=== PATIENT | female | born 1995 | race African-American/Black ===

== ENCOUNTER 2017-05-28 11:23 | Emergency (ER) | payer MEDICAID, OTHER ==
[~2017-05-28 11:23] MED LIST: AUGM875T PO; KCL20 PO; OXYC1SOL5 PO
[2017-05-28 11:44] VITALS: BP 130/78; PULSE 87; RESP 16; TEMP 99; O2SAT 100
[2017-05-28] MEDS ORDERED: CLIN300C5 PO (12:40)
[2017-05-28] MEDS ORDERED: PRED20 PO (12:40)
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
== END 2017-05-28 13:40 | disposition home or self-care (01) ==
LOC: PHEFT 11:23
DX: S00.86XA Insect bite (nonvenomous) of other part of head, initial encounter (principal); S60.561A Insect bite (nonvenomous) of right hand, initial encounter; W57.XXXA Bitten or stung by nonvenomous insect and other nonvenomous arthropods, initial encounter; Z72.0 Tobacco use
CPT/HCPCS: 99284

== ENCOUNTER 2018-03-11 09:04 | Observation (INO) ==
--- NOTE | 2018-03-11 09:38 | ED ---
HPI General Chief complaint: Dental/Oral Stated complaint: Dental abscess since Time Seen by Provider: 03/11/18 09:27 Source: patient Mode of arrival: ambulatory Limitations: no limitations History of Present Illness HPI Narrative: 22 y/o female presents with left facial pain and swelling. She went to a dentist on Monday and was prescribed amoxicillin but when her symptoms worsen yesterday she was switched to Augmentin. She states despite that her pain continues and her face is swelling more. She denies other concurrent complaints at this time. She states the dentist told her she had the beginnings of an abscess she will need a root canal. Complaint: Reports tooth pain Onset (ago): day(s) Severity: severe Relieving factors: NSAIDs Treatment prior to arrival: Reports oral analgesic Related Data Home Medications Medication Instructions Recorded Confirmed amoxicillin-pot clavulanate 1 tab PO BID 03/11/18 03/11/18 [Augmentin] ibuprofen 200 mg PO TID-QID PRN 03/11/18 03/11/18 Allergies Allergy/AdvReac Type Severity Reaction Status Date / Time No Known Allergies Allergy Verified 03/11/18 09:05 Review of Systems ROS: all other systems reviewed are negative COUNT INCLUDES THE [facility] Medical History Medical History History of abdominal hernia (Acute) Surgical History Surgical History H/O elbow surgery (Acute) H/O: (Acute) Social History Social History Substance History: No History of Abuse Smoking Status: Current every day smoker Tobacco Type: Cigarettes How Often Do You Have a Drink Containing Alcohol: 2 to 4 times a month Recent Travel in [facility] within the Last 8 Weeks: No Recent Out of Country Travel within the Last 8 Weeks: No Immunization History Tetanus Immunization: Unsure Exam Narrative Exam Narrative: GENERAL: 22 y/o female who appears uncomfortable SKIN: Focused skin assessment warm/dry. HEAD: Atraumatic. Normocephalic. Significant swelling noted to left lower face EYES: Pupils equal and round. No scleral icterus. No injection or drainage. ENT: No nasal bleeding or discharge. Mucous membranes pink and moist. No large dental carry or gingival irritation on limited exam given facial swelling to left lower face NECK: Trachea midline. No JVD. CARDIOVASCULAR: Regular rate and rhythm. No murmur appreciated. RESPIRATORY: No accessory muscle use. Clear to auscultation. Breath sounds equal bilaterally. GASTROINTESTINAL: Abdomen soft, non-tender, nondistended. MUSCULOSKELETAL: No obvious deformities. No clubbing. No cyanosis. No edema. NEUROLOGICAL: Awake and alert. No obvious cranial nerve deficits. Motor grossly within normal limits. Normal speech. PSYCHIATRIC: Appropriate mood and affect; insight and judgment normal. Course Reevaluation(s) Reevaluation #1: patient updated and agrees to discussion with surgeon Reevaluation #2: agrees to medical admit for antibiotics and steriods Consultations Consultation #1: dr medina states to give zosyn and additionally decadron 6mg iv times 2 Consultation #2: dr maldonado agrees to admit Initial Documented Vital Signs Temperature 99.0 F 03/11/18 09:07 Pulse Rate 109 H 03/11/18 09:07 Respiratory Rate 18 03/11/18 09:07 Blood Pressure 161/85 H 03/11/18 09:07 Pulse Oximetry 98 03/11/18 09:07 Last Documented Vital Signs Temperature 99.0 F 03/11/18 09:07 Pulse Rate 109 H 03/11/18 09:07 Respiratory Rate 18 03/11/18 09:07 Blood Pressure 161/85 H 03/11/18 09:07 Pulse Oximetry 97 03/11/18 09:40 Medical Decision Making MDM Narrative Medical decision making narrative: Will check blood work, CT and reevaluate Medical Screen Exam Complete: Yes Emergency Medical Condition: Yes Differential Diagnosis Differential Diagnosis: Abscess, osteomyelitis, dental caries Lab Data Lab results reviewed: Yes I reviewed the patient's lab results. Result diagrams: 03/11/18 09:39 03/11/18 09:39 POC Results POC Urine Results Negative Lab Results 03/11/18 03/11/18 Range/Units 09:39 09:39 CBC w Diff Auto diff final WBC 7.7 (4.0-11.0) th/mm3 RBC 4.53 (4.00-5.30) mil/mm3 Hgb 13.2 (11.6-15.3) gm/dL Hct 39.8 (35.0-46.0) % MCV 87.7 (80.0-100.0) fL MCH 29.2 (27.0-34.0) pg MCHC 33.3 (32.0-36.0) % RDW 15.0 (11.6-17.2) % Plt Count 250 (150-450) th/mm3 MPV 8.3 (7.0-11.0) fL Neut % (Auto) 80.0 H (16.0-70.0) % Lymph % (Auto) 15.8 (9.0-44.0) % [place] % (Auto) 2.1 (0.0-8.0) % Eos % (Auto) 0.5 (0.0-4.0) % Baso % (Auto) 1.6 (0.0-2.0) % Neut # (Auto) 6.2 (1.8-7.7) th/mm3 Lymph # (Auto) 1.2 (1.0-4.8) th/mm3 [place] # (Auto) 0.2 (0.0-0.9) th/mm3 Eos # (Auto) 0.0 (0.0-0.4) th/mm3 Baso # (Auto) 0.1 (0.0-0.2) th/mm3 WBC Differential . Differential Comment . Sodium 138 (136-145) meq/L Potassium 3.3 L (3.5-5.1) meq/L Chloride 103 (98-107) meq/L Carbon Dioxide 23.3 (21.0-32.0) meq/L Anion Gap 12 (5-15) meq/L BUN 9 (7-18) mg/dL Creatinine 0.59 (0.50-1.00) mg/dL Estimated GFR Greater than 89 (>89) mL/min Random Glucose 71 L (74-106) mg/dL Calcium 9.0 (8.5-10.1) mg/dL Imaging Data Attestation: I personally reviewed and interpreted this imaging study as follows : Radiologist's impression: Face CT 03/11/18 09:32 CONCLUSION: 1. Radiolucency and bone defect surrounding the root of the lower left second bicuspid characteristic of a periodontal abscess. 2. Focal mandibular cortical defect adjacent to the root abscess extending into the subcutaneous tissue causing a small abscess. 3. No other significant abnormality. Discharge Plan Discharge Disposition Patient Disposition: 30 Still Patient Discharge Details Diagnosis: Dental abscess Physicians Team ED Provider: Latonya Davis Primary Care Provider: Primary Care Jennifer Macdonald Rxs /Orders / Referrals /Forms Prescriptions: No Action ibuprofen 200 mg Tablet 200 mg PO TID-QID PRN (Reason: Acute Pain) RF: 0 amoxicillin-pot clavulanate [Augmentin] 875-125 mg Tablet 1 tab PO BID RF: 0 Status ED Status: Admitted Patient
[2018-03-11] MEDS ORDERED: Ketorolac Inj 30 MG/ML (IVP) Vial IV.PUSH ONE (09:39)
[2018-03-11 09:56] LABS: Baso # (Auto) 0.1 th/mm3 (0.0-0.2); Baso % (Auto) 1.6 % (0.0-2.0); Eos % (Auto) 0.5 % (0.0-4.0); Hematocrit 39.8 % (35.0-46.0); Hemoglobin 13.2 gm/dL (11.6-15.3); Lymph # (Auto) 1.2 th/mm3 (1.0-4.8); Lymph % (Auto) 15.8 % (9.0-44.0); Mean Corpuscular HGB Conc 33.3 % (32.0-36.0); Mean Corpuscular Hemoglobin 29.2 pg (27.0-34.0); Mean Corpuscular Volume 87.7 fL (80.0-100.0); Mean Platelet Volume 8.3 fL (7.0-11.0); Mono # (Auto) 0.2 th/mm3 (0.0-0.9); Mono % (Auto) 2.1 % (0.0-8.0); Neut # (Auto) 6.2 th/mm3 (1.8-7.7); Platelet Count 250 th/mm3 (150-450); Red Blood Count 4.53 mil/mm3 (4.00-5.30); White Blood Count 7.7 th/mm3 (4.0-11.0)
[2018-03-11 10:24] LABS: Chloride 103 meq/L (98-107); Potassium 3.3 meq/L (3.5-5.1); Sodium 138 meq/L (136-145)
[2018-03-11 10:27] LABS: Anion Gap 12 meq/L (5-15); Blood Urea Nitrogen 9 mg/dL (7-18); Carbon Dioxide 23.3 meq/L (21.0-32.0); Glucose,Random 71 mg/dL (74-106)
[2018-03-11 10:30] LABS: Glomerular Filtration Rate Greater Than 89 mL/min (>89)
--- NOTE | 2018-03-11 12:08 | CT ---
EXAM DATE: 03/11/2018 11:03 AM EST AGE/SEX: 22 years / Female INDICATIONS: Left sided dental infection with facial pain and swelling. No improvement with oral ant ibiotics. CLINICAL DATA: This is the patient's initial encounter. Patient reports that signs and symptoms have been present for 4 - 6 days and indicates a pain score of 8/10. MEDICAL/SURGICAL HISTORY: . Hernia. section. Elbow surgery. RADIATION DOSE: 30.00 CTDI (mGy) COMPARISON: [facility] [place], CT FACIAL BONES W CONTRAST, 05/30/2015. . TECHNIQUE: Contiguous images in the axial and coronal planes were obtained using helical multirow de tector technique with 75 ml Omnipaque 350 (iohexol) nonionic water-soluble contrast as a single exam dose. Using automated exposure control and adjustment of the mA and/or kV according to patient size , radiation dose was kept as low as reasonably achievable to obtain optimal diagnostic quality images . DICOM format image data is available electronically for review and comparison. FINDINGS: Significant radiolucency is identified surrounding the the root of the left second lower bicuspid, (# 20). A focal cortical defect extends to the lateral mandibular margin. Surrounding the defect is a 10 to 12 mm semicircular hypodensity characteristic of a small abscess. There is significant soft tissu e swelling along the body of the left mandible. Orbits: The orbital and infraorbital osseous structures are intact. The retroconal structures have a normal configuration. No radiopaque foreign bodies are seen. Nasal Bone: The nasal bone and maxillary spine are intact. Zygomatic Arches: Symmetric without evidence of fracture. Sinuses: The maxillary, ethmoid and frontal sinuses are intact. No air-fluid levels seen. Nasal Cavity: The nasal septum is intact and midline. The lacrimal ducts are intact. Soft Tissues: No radiopaque foreign bodies seen. No soft-tissue swelling is seen. Intracranial: No intracranial air seen. Cribriform Plate: Grossly intact. Post Contrast: No abnormal areas of enhancement seen. CONCLUSION: 1. Radiolucency and bone defect surrounding the root of the lower left second bicuspid characteristi c of a periodontal abscess. 2. Focal mandibular cortical defect adjacent to the root abscess extending into the subcutaneous tis merlin causing a small abscess. 3. No other significant abnormality. Electronically signed by: Edin Chi MD 03/11/2018 12:07 PM EST
[2018-03-11] MEDS ORDERED: Piperacil/Tazo 3.375 GM Premix 50 ML IV.SIG ONE (12:41)
[2018-03-11] MEDS ORDERED: Potassium Bicarbonate 25 MEQ Effervescent Tablet PO STA (13:06)
[2018-03-11] MEDS ORDERED: Acetaminophen 325 MG Tablet PO PRN ×2 (13:08→13:09)
[2018-03-11] MEDS ORDERED: Bisacodyl 10 MG Supp RECTAL PRN (13:08)
[2018-03-11] MEDS ORDERED: Naloxone Inj 0.4 MG/ML Vial IV.PUSH PRN (13:09)
[2018-03-11] MEDS ORDERED: Ibuprofen 400 MG Tablet PO PRN (13:09)
[2018-03-11] MEDS ORDERED: Ketorolac Inj 30 MG/ML (IVP) Vial IV.PUSH PRN (13:09)
[2018-03-11 13:34] LABS: Magnesium 1.9 mg/dL (1.5-2.5)
[2018-03-11] MEDS: Ketorolac Inj 30 MG/ML (IVP) Vial IV.PUSH PRN ×2 (14:01→20:08)
--- NOTE | 2018-03-11 14:09 | P.HP ---
History of Present Illness Primary Care Physician: No Primary Care Physician Chief Complaint: Dental abscess History of Present Illness: This is a 22-year-old female with no significant past medical history. She developed painful swelling involving the left cheek and was diagnosed with a dental abscess 4 days ago. She was started on amoxicillin but swelling got worse and was switched to Augmentin yesterday. She denies fever or chills. She presents to the emergency department because the swelling has not subsided. Imaging study shows periodontal abscess involving the left lower second tooth extending into the subcutaneous tissue. No trismus or change in voice. OMFS recommended hospitalization and start IV Zosyn and Decadron. LMP 2 weeks ago. All other systems reviewed negative Review of Systems All other systems reviewed negative except as stated in HPI PMFSH - History History Provided By: Patient, Family Member - Medical History Medical History: Medical History (Last Reviewed 03/11/18 @ 14:05 by Abdiel Medellin MD) History of abdominal hernia - Surgical History Surgical History: Surgical History (Last Reviewed 03/11/18 @ 14:05 by Abdiel Medellin MD) H/O elbow surgery H/O: - Family History Family History: Family History (Last Updated 03/11/18 @ 14:06 by Abdiel Medellin MD) Other Family history of hypertension - Social History I have reviewed the patient's Social History: Yes - Tobacco History Tobacco Use In Past 30 Days: Yes Smoking Status: Current every day smoker Tobacco Type: Cigarettes - Alcohol History How Often Do You Have a Drink Containing Alcohol: 2 to 4 times a month - Substance Use History Substance History: No History of Abuse - Travel History Recent Travel in the [place] Within the Last 8 Weeks: No Recent Travel Out of the Country Within the Last 8 Weeks: No - Immunization History Tetanus Immunization: Unsure Medications and Allergies Active Medications: Active Medications Acetaminophen (Tylenol) 650 mg PO Q4H PRN PRN Reason: Temp > 100.4 Acetaminophen (Tylenol) 650 mg PO Q6HR PRN PRN Reason: PAIN SCALE 1 TO 2 Al Hydroxide/Mg Hydroxide (Milk Of Magnesia Liq) 30 ml PO Q12H PRN PRN Reason: Mild Constipation Bisacodyl (Dulcolax Supp) 10 mg RECTAL DAILY PRN PRN Reason: SEVERE CONSITIPATION Dexamethasone Sodium Phosphate (Decadron Inj) 4 mg IV.PUSH Q8HR ROMERO Stop: 03/12/18 06:01 Piperacillin/Tazobactam/Dextrose (Zosyn 3.375 Gm Premix) 50 mls @ 100 mls/hr IV.SIG Q6H [facility] Potassium Chloride/Sodium Chloride (Ns + Kcl 20 Meq Inj) 1,000 mls @ 70 mls/hr IV.CONT .[id number] [facility] Stop: 03/12/18 04:32 Ibuprofen (Motrin) 400 mg PO Q6HR PRN PRN Reason: PAIN SCALE 1 TO 2 Ketorolac Tromethamine (Toradol Inj) 15 mg IV.PUSH Q6H PRN PRN Reason: PAIN 3-5; IF UABLE TO TAKE PO Stop: 03/16/18 13:08 Ketorolac Tromethamine (Toradol Inj) 30 mg IV.PUSH Q6H PRN PRN Reason: PAIN 6-10;IF UNABLE TO TAKE PO Stop: 03/16/18 13:08 Lactulose (Lactulose Liq) 30 ml PO DAILY PRN PRN Reason: SEVERE CONSITIPATION Naloxone HCl (Narcan Inj) 0.4 mg IV.PUSH UNSCH PRN PRN Reason: SEE LABEL COMMENTS Ondansetron HCl (Zofran Inj) 4 mg IV.PUSH Q6H PRN PRN Reason: NAUSEA OR VOMITING Senna/Docusate Sodium (Kaia-Colace) 1 tab PO BID [facility] Sennosides (Senokot) 17.2 mg PO Q12H PRN PRN Reason: Moderate Constipation Sodium Chloride (Ns Flush) 2 ml IV.FLUSH PRN PRN PRN Reason: FLUSH AFTER USING IV ACCESS Last Admin: 03/11/18 09:45 Dose: 2 ml Allergies Allergy/AdvReac Type Severity Reaction Status Date / Time No Known Allergies Allergy Verified 03/11/18 09:05 Home Medications Medication Instructions Recorded Confirmed Type amoxicillin-pot clavulanate 1 tab PO BID 03/11/18 03/11/18 History [Augmentin] ibuprofen 200 mg PO TID-QID PRN 03/11/18 03/11/18 History Exam Vital signs: Vital Signs 03/11/18 09:07 03/11/18 09:40 03/11/18 13:29 Temperature 99.0 F Pulse Rate 109 H 89 Respiratory Rate 18 17 Blood Pressure 161/85 H 145/72 H Pulse Oximetry 98 97 97 Intake & Output 03/10/18 03/11/18 03/11/18 19:59 06:59 18:59 Intake Total 50 / 50 Balance 50 / 50 Weight 66.3 kg Intake: IV 50 / 50 Zosyn 3.375 GM Premix 50 ML @ 50 / 50 100 mls/hr IV.SIG ONCE ONE Rx#: [id number] Narrative: GENERAL: Well-developed, well-nourished in distress secondary to pain SKIN: Warm and dry. HEAD: Atraumatic. Normocephalic. EYES: Pupils equal and round. No scleral icterus. No injection or drainage. ENT: No nasal bleeding or discharge. Mucous membranes pink and moist. Swelling in the left lower face extending to submandibular area. No dental carry noted NECK: Trachea midline. No JVD. CARDIOVASCULAR: Regular rate and rhythm. RESPIRATORY: No accessory muscle use. Clear to auscultation. Breath sounds equal bilaterally. GASTROINTESTINAL: Abdomen soft, non-tender, nondistended. MUSCULOSKELETAL: Extremities without clubbing, cyanosis, or edema. No obvious deformities. NEUROLOGICAL: Awake and alert. No obvious cranial nerve deficits. Motor grossly within normal limits. Five out of 5 muscle strength in the arms and legs. Normal speech. PSYCHIATRIC: Appropriate mood and affect; insight and judgment normal. Results - Labs CBC & Chem 7: 03/11/18 09:39 03/11/18 09:39 Labs: Laboratory Results - last 24 hr 03/11/18 03/11/18 09:39 09:39 CBC w Diff Auto diff final WBC 7.7 RBC 4.53 Hgb 13.2 Hct 39.8 MCV 87.7 MCH 29.2 MCHC 33.3 RDW 15.0 Plt Count 250 MPV 8.3 Neut % (Auto) 80.0 H Lymph % (Auto) 15.8 [place] % (Auto) 2.1 Eos % (Auto) 0.5 Baso % (Auto) 1.6 Neut # (Auto) 6.2 Lymph # (Auto) 1.2 [place] # (Auto) 0.2 Eos # (Auto) 0.0 Baso # (Auto) 0.1 WBC Differential . Differential Comment . Sodium 138 Potassium 3.3 L Chloride 103 Carbon Dioxide 23.3 Anion Gap 12 BUN 9 Creatinine 0.59 Estimated GFR Greater than 89 Random Glucose 71 L Calcium 9.0 Magnesium 1.9 - Imaging Impressions Face CT 03/11/18 09:32 CONCLUSION: 1. Radiolucency and bone defect surrounding the root of the lower left second bicuspid characteristic of a periodontal abscess. 2. Focal mandibular cortical defect adjacent to the root abscess extending into the subcutaneous tissue causing a small abscess. 3. No other significant abnormality. Caprini VTE Risk Assessment Caprini VTE Risk Assessment: No/Low Risk (score <= 1) Caprini Risk Assessment Model: Point Value = 1 Point Value = 2 Point Value = 3 Point Value = 5 Age 41-60 Minor surgery BMI > 25 kg/m2 Swollen legs Varicose veins or History of unexplained or recurrent spontaneous Oral contraceptives or hormone replacement Sepsis (< 1 month) Serious lung disease, including pneumonia (< 1 month) Abnormal pulmonary function Acute myocardial infarction Congestive heart failure (< 1 month) History of inflammatory bowel disease Medical patient at bed rest Age 61-74 Arthroscopic surgery Major open surgery (> 45 min) Laparoscopic surgery (> 45 min) Malignancy Confined to bed (> 72 hours) Immobilizing plaster cast Central venous access Age >= 75 History of VTE Family history of VTE Factor V Leiden Prothrombin [id number] Lupus anticoagulant Anticardiolipin antibodies Elevated serum homocysteine Heparin-induced thrombocytopenia Other congenital or acquired thrombophilia Stroke (< 1 month) Elective arthroplasty Hip, pelvis, or leg fracture Acute spinal cord injury (< 1 month) Prophylaxis Regimen: Total Risk Factor Score Risk Level Prophylaxis Regimen 0-1 Low Early ambulation 2 Moderate Order ONE of the following: *Sequential Compression Device (SCD) *Heparin 5000 units SQ BID 3-4 Higher Order ONE of the following medications: *Heparin 5000 units SQ TID *Enoxaparin/Lovenox 40 mg SQ daily (WT < 150 kg, CrCl > 30 mL/min) *Enoxaparin/Lovenox 30 mg SQ daily (WT < 150 kg, CrCl > 10-29 mL/min) *Enoxaparin/Lovenox 30 mg SQ BID (WT < 150 kg, CrCl > 30 mL/min) AND/OR *Sequential Compression Device (SCD) 5 or more Highest Order ONE of the following medications: *Heparin 5000 units SQ TID (Preferred with Epidurals) *Enoxaparin/Lovenox 40 mg SQ daily (WT < 150 kg, CrCl > 30 mL/min) *Enoxaparin/Lovenox 30 mg SQ daily (WT < 150 kg, CrCl > 10-29 mL/min) *Enoxaparin/Lovenox 30 mg SQ BID (WT < 150 kg, CrCl > 30 mL/min) AND *Sequential Compression Device (SCD) Assessment and Plan - Plan This is a 22-year-old female with no significant past medical history. She presented with worsening painful swelling involving the left cheek despite on antimicrobial therapy. Imaging study shows periodontal abscess involving the left lower second tooth extending into the subcutaneous tissue. Dental abscess. Continue IV Zosyn and IV Decadron with pain management. Diet as tolerated and IV fluids for 1 L. Consult OMFS Hypokalemia. Replace with 50 mEq p.o. potassium. Check mag
[2018-03-11] MEDS: Piperacil/Tazo 3.375 GM Premix 50 ML IV.SIG SCH (18:15)
[2018-03-11] MEDS ORDERED: Piperacil/Tazo 3.375 GM Premix 50 ML IV.SIG SCH (19:00)
[2018-03-11] MEDS: Senna/Docusate Sodium 8.6/50 MG Tablet PO SCH (21:15)
[2018-03-12] MEDS: Piperacil/Tazo 3.375 GM Premix 50 ML IV.SIG SCH ×4 (00:37→17:45)
[2018-03-12] MEDS: Senna/Docusate Sodium 8.6/50 MG Tablet PO SCH (08:27)
[2018-03-12] MEDS: Ketorolac Inj 30 MG/ML (IVP) Vial IV.PUSH PRN (08:30)
[2018-03-12 09:10] VITALS: O2SAT 99
--- NOTE | 2018-03-12 11:13 | P.PN ---
Subjective Interval history: This is a follow-up for periodontal abscess. States she is doing better tolerating meals. Swelling is improved. Physical Exam Vital signs: Vital Signs 03/11/18 13:29 03/11/18 14:31 03/11/18 16:00 Temperature 98.0 F Pulse Rate 89 85 Respiratory Rate 17 17 15 Blood Pressure 145/72 H 125/67 Pulse Oximetry 97 99 03/11/18 20:00 03/12/18 00:00 03/12/18 08:00 Temperature 98.2 F 97.5 F L 98.5 F Pulse Rate 83 85 86 Respiratory Rate 18 18 20 Blood Pressure 126/66 128/80 130/62 Pulse Oximetry 95 95 99 Intake & Output 03/11/18 03/12/18 03/12/18 18:59 06:59 18:59 Intake Total 400 / 400 1100 / 1100 Output Total 400 / 400 Balance 400 / 400 700 / 700 Weight 66.3 kg 67.9 kg Intake: IV 400 / 400 1100 / 1100 NS + KCl 20 mEq Inj 1,000 ML @ 300 / 300 1000 / 1000 70 mls/hr IV.CONT .[id number] ROMERO Rx#:[id number] Zosyn 3.375 GM Premix 50 ML @ 100 / 100 100 / 100 100 mls/hr IV.SIG Q6HR ROMERO Rx#: [id number] Oral 0 / 0 Output: Urine 400 / 400 Other: Date of Last Bowel Movement 03/07/18 Weight On Admission 66.3 kg Narrative: GENERAL: Well-developed, well-nourished in no distress SKIN: Warm and dry. ENT: No nasal bleeding or discharge. Mucous membranes pink and moist. Swelling in the left lower face extending to submandibular area is improved. No dental carry noted CARDIOVASCULAR: Regular rate and rhythm. RESPIRATORY: No accessory muscle use. Clear to auscultation. Breath sounds equal bilaterally. GASTROINTESTINAL: Abdomen soft, non-tender, nondistended. MUSCULOSKELETAL: Extremities without clubbing, cyanosis, or edema. No obvious deformities. NEUROLOGICAL: Awake and alert. No obvious cranial nerve deficits. Motor grossly within normal limits. Five out of 5 muscle strength in the arms and legs. Normal speech. Results - Labs CBC & Chem 7: 03/11/18 09:39 03/11/18 09:39 Laboratory Results - last 24 hr 03/11/18 09:39 Sodium 138 Potassium 3.3 L Chloride 103 Carbon Dioxide 23.3 Anion Gap 12 BUN 9 Creatinine 0.59 Estimated GFR Greater than 89 Random Glucose 71 L Calcium 9.0 Magnesium 1.9 - Imaging Impressions Face CT 03/11/18 09:32 CONCLUSION: 1. Radiolucency and bone defect surrounding the root of the lower left second bicuspid characteristic of a periodontal abscess. 2. Focal mandibular cortical defect adjacent to the root abscess extending into the subcutaneous tissue causing a small abscess. 3. No other significant abnormality. - Procedures none Assessment and Plan - Plan This is a 22-year-old female with no significant past medical history. She presented with worsening painful swelling involving the left cheek despite on antimicrobial therapy. Imaging study shows periodontal abscess involving the left lower second tooth extending into the subcutaneous tissue. Dental abscess with failed outpatient therapy. Improved swelling. Continue IV Zosyn and IV Decadron with pain management. Diet as tolerated s/p IV fluids for 1 L. F/u OMFS consult Hypokalemia. Replaced with 50 mEq p.o. potassium. Discharge Planning: Discharge patient to home when cleared by OMFS Condition on discharge: Improved Regular Diet as tolerated Ad Arlin activity Rx written: None, continue Augmentin and ibuprofen Follow-up with primary care physician and [facility]
[2018-03-12 11:56] VITALS: RESP 18
[2018-03-12 16:52] VITALS: BP 119/71; PULSE 74; TEMP 98.8
== END 2018-03-12 19:51 | disposition home or self-care (01) ==
LOC: PHED 09:04 → PHEDA 09:04 → PH3 13:46
PROVIDERS: ADMIT Internal Medicine; ATTEND Internal Medicine